=== PATIENT | male | born 1950 | race Caucasian/White ===

== ENCOUNTER 2016-10-02 06:21 | Day surgery (SDC) | payer MEDICARE ==
[2016-10-02] VITALS (10 sets, daily range): BP systolic 93–120; BP diastolic 59–70; PULSE 49–65; RESP 9–16; O2SAT 92–100
[~2016-10-02] VITALS: Ht 170.2 cm; Wt 93.6 kg
[~2016-10-02 06:21] MED LIST: DEXTROSE 5% IV SCH; GABA600T2 PO; GENTAMICIN IV SCH; Gentamicin Inj 140 MG in Dextrose 5% 100 ML IV ONE; NITR100C PO; TAMS0.4C98 PO; Vancomycin 1 Gm/200 mL NS Premix IV ONE
[2016-10-02] MEDS ORDERED: Propofol 10,000 mCg/mL 20 mL Inj ONE (06:22)
[2016-10-02] MEDS ORDERED: Ondansetron 2 mg/mL 2 mL Inj ONE (06:22)
[2016-10-02] MEDS ORDERED: Dexamethasone 4 mg/mL Inj ONE (06:22)
[2016-10-02] MEDS ORDERED: fentaNYL-PF 50 mCg/mL 2 mL Inj ONE (06:22)
[2016-10-02] MEDS: Lactated Ringer's 1,000 ML IV SCH ×3 (06:38→09:43)
[2016-10-02] MEDS ORDERED: ACET-2605 PO (06:38)
--- NOTE | 2016-10-02 07:52 | PCM.HPANE ---
Patient Data Date of Service: October 02, 2016 Surgeon Admitting Provider: Attending Provider:Jonathan Gamino MD Primary Care Physician:Trenton Nuñez MD Other Provider:Pearl Chance Anesthesia Reason for Visit Bladder Stone Ht/WT & BMI Height (Feet): 5 Height (Inches): 7 Weight (Kilograms): 93.6 Body Mass Index 32.00 Allergies Coded Allergies: Sulfa (Sulfonamide Antibiotics) (Verified Allergy, Mild, rash as a child, 06/16/14) Past Anesthesia History Anesthesia History: Denies:: Abnormal Airway, Anesthesia Reactions, Fam Anesthesia Reaction, Fam Malignant Hypertherm, Malignant Hyperthermia Diabetes History Hx Diabetes?: No MRSA MRSA: No Medications Hypertension Medication: No Home Meds Incl Beta Genie: No Reported Medications Acetaminophen/Diphenhydramine (Tylenol Pm Ex-Strength Caplet)500 Mg-25 Mg Tablet2 Each PO 10/02/16 Tamsulosin (Flomax)0.4 Mg Capsule0.4 Mg PO DAILY Ref 0 09/29/16 Nitrofurantoin Macrocrystal 100 Mg [id number] Mg PO Q12H Ref 0 09/29/16 Gabapentin 600 Mg [id number] Mg PO HS Ref 0 09/29/16 Discontinued Reported Medications Temazepam 15 Mg [id number] Mg PO HS PRN For Insomnia 30 Days Ref 0 10/04/14 Tamsulosin ER 0.4 Mg Cap.er.24h0.4 Mg PO BID 30 Days Ref 0 10/04/14 Hydrocodone-Acetaminophen 10-325 mg 1 Tab Tablet1 Tab PO Q6 PRN For Pain Ref 0 10/04/14 Ciprofloxacin (Cipro)500 Mg [id number] Mg PO BID 10 Days Ref 0 10/04/14 History History of ENT Problems?: Yes HEENT History: Positive for:: Hearing Problem Sinus Problem (congestion) Denies:: Abnormal Airway Cataracts Denture Type: None Teeth Condition: Within Normal Limits Hx of Heart Problems?: No Cardiovascular History: Positive for:: Irregular Heartbeat (PVC'S) Denies:: Cardiac Surgery Hx of Respiratory Problem?: Yes Respiratory History: Positive for:: Use of C-PAP Machine Denies:: Cough Dyspnea Emphysema Hemoptysis Oxygen Administration Pneumonia Pulmonary Embolism Tuberculosis Hx Neurologic Problems?: Yes Neurological History: Denies:: Alzheimer's Disease CVA Dementia Dizziness Headaches Multiple Sclerosis Parkinson's Disease Seizures Other Neurological Pertinent: 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 Several of the last few with precautions of non triggering anesthetics Hx of GI Problems?: No Hx of Problems?: Yes Genitourinary History: Positive for:: Kidney Stones (bladder stones current admission problem) Urinary Tract Infection (recurrent) Denies:: HX of Hemodialysis Other Pertinent History: hx of hypospadis, prior stones Male Hx: Positive for:: Prostate Problems (BPH) Testicular Surgery (vas) Denies:: Scrotal Mass Skin History: Denies:: History Skin Disorders? Pressure Ulcers Hx Musculoskeletal Problems?: Yes Musculoskeletal History: Positive for:: Back Injury (hx of lumbar sams) Musculoskeletal Trauma (prior hx of shoulder RCR, knee scope, left calcaneal fx) Denies:: Degenerative Joint Joint Replacement Systemic Lupus Hx of Psycho/Social Problems?: No Psycho Social History: Denies:: Anxiety Bipolar Disorder Hx Depression Suicide Attempt Hx Surgeries?: Yes (Rotator cuff, ingunal hernia, foot x2, knee, umbilical hernia) Hx Any Other Health Problems?: Yes Other History: Positive for:: Hospitalization Denies:: Cancer Endocrine Disease Thyroid Disease History Blood Transfusions: Denies:: Blood Transfusions Hx Diabetes: No Hx Alcohol Use: Yes (almost never)Hx Substance Use: No Smoking Status: Never Smoker Have You Smoked inLast 12 mo: No Stop/Bang Treated for Sleep Apnea?: Yes (but has OLIVIA) Do You Have a CPAP Machine?: Yes S-Snoring: Do You Snore Loudly: Yes T-Tired: feel tired, fatigued: No O-Obsered: Observed not breath: Yes P-Blood Pressure: treated: No B- Body Mass Index > 35 kg/m2: No A- Age over 50: Yes N- Neck Large Circumference: No G- Gender Male: Yes OLIVIA Total Score: 4 OLIVIA Risk Assessment: High Risk, =/>3 Yes OLIVIA Category 4 OutPt Procedure: Yes Risk Assessment Category Category 1A: Patient has history of documented sleep apnea, and HAS NOT received any narcotic, sedative or anesthesia administration during this stay. Category 1B: Patient has history of documented sleep apnea, and HAS received any narcotic , sedative or anesthesia administration during this stay Category 2: Patient has SUSPECTED Obstructive Sleep Apnea, and HAS received any narcotic , sedative or anesthesia administration during this stay. Category 3: Patient has SUSPECTED Obstructive Sleep Apnea and HAS NOT received narcotic, sedative or anesthesia administration during this stay. Category 4: Outpatient in Procedural Areas with known sleep apnea or who screen positive for High Risk via the STOP/BANG questionnaire. Exam Exam Vital Signs Vital Signs Date Time Temp Pulse Resp B/P Pulse Ox O2 Delivery O2 Flow Rate FiO2 10/02/16 07:01 35.8 59 16 120/70 96 Room Air General Appearance: Alert, Oriented X3, Cooperative, No Acute Distress HEENT/AIRWAY: MP 1 Lungs: Clear to Auscultation, Normal Air Movement Heart: Exam Unremarkable, Regular Rate/Rhythm, No Murmurs/Rubs/Gallops Meds/Labs/Diagnostics Admission Meds Current Medications Vancomycin/0.9 % Sod Chloride 1000 mg/Premix 200 ml @ 133.333 mls/hr PREOP ONCE IV Last administered on 10/02/16 07:00; Start 10/02/16 at 06:00; Stop 04/10 at 07:29; Status DC Lactated Ringer's (Lr) 1,000 ml @ 120 mls/hr Q8H20M IV Last administered on 06:38; Start 10/02/16 at 05:00; Stop 10/02/16 at 13:19 Plan Impression Patient chart reviewed, patient interviewed and anesthestic plan with risks, benefits, and alternatives discussed, and informed consent obtained. NPO per Anesth. Guidelines: Yes ASA Physical Status: ASA2 Mod Systemic Disease Anesthetic Plan: GA, TIVA Bene/Risks/Altern/Consents: Yes HP Complete Prior to Induction: Yes Other Plan for non-triggering anesthetic. TIVA with propofol/fentanyl. Reinaldo Lubin MD October 02, 2016 07:52
[2016-10-02] MEDS ORDERED: Lactated Ringer's 500 ML IV PRN (09:16)
[2016-10-02] MEDS ORDERED: Lactated Ringer's 1,000 ML IV SCH (09:16)
[2016-10-02] MEDS ORDERED: Atropine 0.4 mg/mL Inj IVPUSH PRN (09:20)
[2016-10-02] MEDS ORDERED: fentaNYL-PF 50 mCg/mL 2 mL Inj IVPUSH PRN (09:20)
[2016-10-02] MEDS ORDERED: hydrALAZINE 20 mg/mL Inj IVPUSH PRN (09:20)
[2016-10-02] MEDS ORDERED: Ondansetron 2 mg/mL 2 mL Inj IVPUSH PRN (09:20)
[2016-10-02] MEDS ORDERED: Labetalol 5 mg/mL 4 mL Inj IV PRN (09:20)
[2016-10-02] MEDS ORDERED: EPHEDrine Sulfate 50 mg/mL Inj IM PRN (09:20)
[2016-10-02] MEDS ORDERED: hydrOXYzine Inj 50 MG/1 mL SDV IM PRN (09:20)
[2016-10-02] MEDS ORDERED: HYDROmorphone 1 mg/mL Inj IVPUSH PRN (09:20)
[2016-10-02] MEDS ORDERED: Phenylephrine 10,000 mCg/mL Inj IVPUSH PRN (09:20)
[2016-10-02] MEDS ORDERED: EPHEDrine Sulfate 50 mg/mL Inj IVPUSH PRN (09:20)
[2016-10-02] MEDS ORDERED: Belladonna Alk-Opium 60 mg Rectal Suppository RECTAL ONE (09:35)
--- NOTE | 2016-10-02 10:18 | PCM.SURGPO ---
Immediate Operative Note Date of Surgery: October 02, 2016 Pre Operative Diagnosis Bladder calculi Post Operative Diagnosis Bladder calculi, urethral meatal stenosis, bulbar urethral strictures Procedure Cystoscopy, cystolitholapaxy with Holmium laser, and dilation of urethral meatal stenosis Surgeon and Grid Molder Surgeon: Jonathan Gamino MD Assistants: None Findings Cystoscope initially unable to be passed into distal urethra secondary to urethral meatal stenosis. Coronal hypospadias seen. Dilation of urethral meatal stenosis performed using urethral sounds (18F, up to 34F). Cystoscopy revealed no pendulous urethral stricture, multiple very minimal bulbar urethral strictures (with cystoscope able to be passed through strictures easily), mild trilobar prostatic hypertrophy with mildly enlarged intravesical median prostatic lobe, moderately trabeculated bladder with some cellules, no bladder tumors or lesions, and multiple yellowish bladder calculi (>5 calculi, largest calculus approx. 2.5-3cm). Cystolitholapaxy with Holmium laser performed. Complications There were no periprocedural complications identified. Surgical Specimen Removed: Yes Specimen sent to Pathology: No Surgical Specimen description: Bladder calculi fragments sent to lab for stone analysis Anesthetic Administered: GA Grafts, Implants: Other (20F Coude Chanel catheter to straight drainage) Output, Estimated Blood Loss: <5 Blood Admin during surgery: No Additional information Patient to return to see me in 5-6 days for post-op visit and trial of void ( early-mid AM appt.). Jonathan Gamino MD October 02, 2016 10:18 Jonathan Gamino MD October 02, 2016 10:18
--- NOTE | 2016-10-02 10:19 | PCM.ANEP1 ---
Post Anesthesia Phase 1 PACU Phase 1 Assessment Date of Service: October 02, 2016 Vital Signs Vital Signs Date Time Temp Pulse Resp B/P Pulse Ox O2 Delivery O2 Flow Rate FiO2 10/02/16 10:05 63 14 102/62 96 Room Air 10/02/16 10:00 65 15 107/59 96 Room Air 10/02/16 09:55 61 10 100/66 100 Simple Mask 8 10/02/16 07:01 35.8 59 16 120/70 96 Room Air Anesthetic Administered: GA Level of Alertness: Awake, talking SIERRA's with Equal Strength: Yes Pain: No Nausea or Vomiting: No Cardiovascular Function and Hy: Yes Oxygen Delivery: Room Air Lungs: Clear to Auscultation, Normal Air Movement Dermatome Level: Full Sensation Complications: No Follow up Care: No Patient Instructions Provided: Yes Reinaldo Lubin MD October 02, 2016 10:19
--- NOTE | 2016-10-02 10:32 | PCM.DISURG ---
Surgical Discharge Instruction Date of Service October 02, 2016 Dates of Hospitalization Date of Hospital Admission October 02, 2016 Providers Admitting Physician: Jonathan Gamino MD Primary Care Physician: Trenton Nuñez MD Attending Physician: Jonathan Gamino MD Discharge Diagnosis Discharge Diagnosis Bladder calculi, urethral meatal stenosis, bulbar urethral strictures Post Operative diagnosis Bladder calculi, urethral meatal stenosis, bulbar urethral strictures Diet Discharge Diet: No restrictions, Other (Drink at least 10-12 8oz. glasses (3 liters) of fluids per day) Activity Discharge Activity-General: No driving while taking narcotic, Other (No strenuous exercise/activity or moderate or heavy lifting (>10 lbs.) for 1 week) Dressing and Incisional Care Hygiene: September shower Follow Up Plan Follow-up Provider (F9): Jonathan Gamino MD Follow-up appointment: Days (5-6 days for post-op visit and trial of void ( early-mid AM appt.)) Call your provider for: Fever, Chills, Vomiting, Other (Non-draining Chanel catheter, pain uncontrolled by pain medications) Jonathan Gamino MD October 02, 2016 10:32
[2016-10-02] MEDS ORDERED: HYDROcodone-APAP 5-325 mg Tablet PO PRN (10:35)
--- NOTE | 2016-10-03 15:12 | OP ---
[address] [address] OPERATIVE REPORT PATIENT: JULIO BUTLER : 1950 MR#: [id number] ADMIT: 10/02/2016 JOB ID: [id number] DATE OF SURGERY: 10/02/2016 PREOPERATIVE DIAGNOSIS(ES): Bladder calculi. POSTOPERATIVE DIAGNOSIS(ES): Bladder calculi, urethral meatal stenosis, bulbar urethral strictures. PROCEDURE: Cystoscopy, cystolitholapaxy with Holmium laser (>2.5cm), and dilation of urethral meatal stenosis. SURGEON: Jonathan Gamino MD. CHIEF OF INTERNAL MEDICINE: None. ANESTHESIA: General. ESTIMATED BLOOD LOSS: Less than 5 mL. SPECIMENS: Bladder calculi fragments sent to the lab for stone analysis. DRAINS: 20-Uzbek coude Chanel catheter to straight drainage. COMPLICATION: None. CONDITION: Stable. FINDINGS: Cystoscope initially unable to be passed into the distal urethra secondary to urethral meatal stenosis. Coronal hypospadias seen. Dilation of urethral meatal stenosis performed using urethral sounds (18-Uzbek, up to 34-Uzbek). Cystoscopy revealed no pendulous urethral stricture, multiple very minimal bulbar urethral strictures (with the cystoscope able to be passed through strictures easily), mild trilobar prostatic hypertrophy with mildly enlarged intravesical median prostatic lobe, moderately trabeculated bladder with some cellules, no bladder tumors or lesions, and multiple yellowish bladder calculi (greater than five calculi, largest calculus approximately 2.5-3 cm). Cystolitholapaxy with Holmium laser performed. INDICATIONS: The patient is a 66-year-old male, found on office cystoscopy to have bladder calculi, also found on office cystoscopy to have urethral meatal stenosis, which was dilated using the cystoscope, pendulous urethral stricture which was dilated using the cystoscope, minimal bulbar urethral strictures, and the bladder calculi. Patient now presents for cystoscopy and cystolitholapaxy with Holmium laser. PROCEDURE: Patient was brought to the operating room and placed supine on the operating room table. The patient was given vancomycin and gentamicin IV antibiotics. Sequential compression device boots were placed. General anesthesia was administered. The patient was brought down into dorsal lithotomy position. The patient was prepped and draped in standard surgical fashion. A 28-Uzbek continuous-flow resectoscope was initially unable to be passed into the distal urethra secondary to a urethral meatal stenosis. Of note, coronal hypospadias was seen. Dilation of the urethral meatal stenosis was performed in a serial fashion using Jassi urethral sounds starting at 18-Uzbek up to 34-Uzbek. Continuous flow resectoscope was subsequently able to be passed through the urethral meatus and into the distal urethra. Cystoscopy revealed no pendulous urethral stricture, multiple very minimal bulbar urethral strictures (with the continuous-flow resectoscope able to be passed through the strictures easily), mild trilobar prostatic hypertrophy with mildly enlarged intravesical median prostatic lobe, moderately trabeculated bladder with some cellules, no bladder tumors or lesions, bilateral ureteral orifices in normal position, and multiple yellowish bladder calculi, with more than five calculi seen, with the largest calculus approximately 2.5-3 cm in diameter. Cystolitholapaxy with Holmium laser was performed using a 940 micron Holmium laser fiber, fragmenting the calculi into small fragments. Bladder calculi fragments were irrigated out of the bladder using the continuous flow resectoscope and also were evacuated out of the bladder with the aid of an AppUpper - ASO evacuator. Bladder calculi fragments were sent to the laboratory for stone analysis. The bladder was visualized. No evidence for bladder injury was seen. Bilateral ureteral orifices were seen to be intact and well-preserved at the end of the case. No significant larger than 1 mm bladder calculi fragments were seen. The continuous-flow resectoscope was removed from the patient. A 20-Uzbek coude Chanel catheter was placed through the urethra and into the bladder without difficulty. Chanel catheter balloon was inflated with 10 mL sterile water. Chanel catheter was placed to straight drainage. The skin was cleaned and dried. Patient was placed in supine position. The patient was awakened from general anesthesia and transferred to the recovery room in stable condition. The patient tolerated the procedure well. Plan is for the patient to return to see me in the office in 5-6 days for postoperative visit and trial of void. TY
[2016-10-10 11:10] LABS: Stone Color Tan (.)
== END 2016-10-02 23:59 | disposition home or self-care (01) ==
LOC: SAS 06:21
PROVIDERS: ATTEND Urology
DX: N21.0 Calculus in bladder (principal); N35.8 Other urethral stricture; N40.1 Benign prostatic hyperplasia with lower urinary tract symptoms; R33.8 Other retention of urine; I82.409 Acute embolism and thrombosis of unspecified deep veins of unspecified lower extremity; K21.9 Gastro-esophageal reflux disease without esophagitis; K57.30 Diverticulosis of large intestine without perforation or abscess without bleeding; G47.33 Obstructive sleep apnea (adult) (pediatric); M19.90 Unspecified osteoarthritis, unspecified site; G25.81 Restless legs syndrome; Z87.442 Personal history of urinary calculi; Z87.440 Personal history of urinary (tract) infections
CPT/HCPCS: 52318; 52341; 82360; J1100; J1580; J2405; J3010; J3370; J7120